=== PATIENT | female | born 1975 | race Caucasian/White ===

== ENCOUNTER 2016-05-31 14:23 | Emergency (ER) | payer BC, SELFPAY ==
[2016-05-31 15:09] LABS: HEMOGLOBIN 12.8 gm/dl (12.3-15.3); RED BLOOD COUNT 4.39 M/UL (4.00-5.10); WHITE BLOOD COUNT 8.4 K/UL (4.5-11.0)
[2016-05-31 15:32] LABS: BUN/CREATININE RATIO 14 (0-10)
== END 2016-05-31 21:00 | disposition home or self-care (01) ==
LOC: ER1 14:23
PROVIDERS: Emergency Medicine
DX: R00.2 Palpitations (principal)
CPT/HCPCS: 36415; 71010; 71020; 80053; 82550; 82553; 83874; 84443; 84484; 84703; 85025; 85379; 93005; 99285

== ENCOUNTER → 2016-06-14 | Outpatient (CLI) | payer BC, SELFPAY ==
[2016-06-14 08:01] LABS: HEMOGLOBIN 13.8 gm/dl (12.3-15.3); RED BLOOD COUNT 4.71 M/UL (4.00-5.10); WHITE BLOOD COUNT 7.7 K/UL (4.5-11.0)
[2016-06-14 08:25] LABS: BUN/CREATININE RATIO 18 (0-10)
== END ==
LOC: LAB 06:45
PROVIDERS: Psychiatry & Neurology Neurology
DX: G50.0 Trigeminal neuralgia (principal); E78.5 Hyperlipidemia, unspecified; I10 Essential (primary) hypertension; E55.9 Vitamin D deficiency, unspecified
CPT/HCPCS: 80053; 80061; 84439; 84443; 85025

== ENCOUNTER → 2016-07-04 | Outpatient (CLI) | payer BC, SELFPAY | LOC: RT 12:01 | DX: R00.2 Palpitations (principal); I10 Essential (primary) hypertension ==

== ENCOUNTER → 2016-07-22 | Outpatient (CLI) | payer BC, SELFPAY | LOC: HEART 5 09:30 → ECHO 10:00 | DX: R00.2 Palpitations (principal); I10 Essential (primary) hypertension; I35.0 Nonrheumatic aortic (valve) stenosis | CPT/HCPCS: ECHO; 93306 ==

== ENCOUNTER → 2020-02-27 | Outpatient (CLI) | payer BC | LOC: HEART 5 13:29 | DX: R00.0 Tachycardia, unspecified (principal) ==

== ENCOUNTER → 2020-08-22 | Outpatient (CLI) | payer BC ==
[~2020-08-22] MED LIST: LOMOTIL 2.5-0.1 EACH PO
[2020-08-22 08:25] LABS: HEMOGLOBIN 12.8 gm/dl (12.3-15.3); RED BLOOD COUNT 4.28 M/UL (4.00-5.10); WHITE BLOOD COUNT 7.1 K/UL (4.5-11.0)
[2020-08-22 08:50] LABS: BUN/CREATININE RATIO 10 (0-10)
== END ==
LOC: LAB 07:51
PROVIDERS: Nurse Practitioner Family
DX: I10 Essential (primary) hypertension (principal); E78.5 Hyperlipidemia, unspecified; E55.9 Vitamin D deficiency, unspecified
CPT/HCPCS: 36415; 80053; 80061; 81001; 84439; 84443; 85025

== ENCOUNTER → 2020-08-27 | Outpatient (CLI) | payer BC ==
[2020-08-27 08:50] LABS: BUN/CREATININE RATIO 17 (0-10)
== END ==
LOC: LAB 07:29
PROVIDERS: Nurse Practitioner Family
DX: E87.1 Hypo-osmolality and hyponatremia (principal)
CPT/HCPCS: 80048

== ENCOUNTER → 2020-10-19 | Outpatient (CLI) | payer BC | LOC: CT 08:54 | DX: G50.1 Atypical facial pain (principal); J32.9 Chronic sinusitis, unspecified | CPT/HCPCS: 70486 ==

== ENCOUNTER → 2020-10-28 | Outpatient (CLI) | payer BC ==
[2020-10-28 07:52] LABS: BUN/CREATININE RATIO 18 (0-10)
== END ==
LOC: LAB 07:15
PROVIDERS: Psychiatry & Neurology Neurology
DX: G50.1 Atypical facial pain (principal); E87.1 Hypo-osmolality and hyponatremia; J32.9 Chronic sinusitis, unspecified; G50.0 Trigeminal neuralgia
CPT/HCPCS: 80048

== ENCOUNTER 2020-11-12 08:36 | Emergency (ER) | payer BC ==
[2020-11-12] MEDS ORDERED: LOMOTIL 2.5-0.1 EACH PO (10:10)
== END 2020-11-12 10:28 | disposition home or self-care (01) ==
LOC: ER1 08:36
DX: K64.4 Residual hemorrhoidal skin tags (principal); K52.9 Noninfective gastroenteritis and colitis, unspecified; E78.5 Hyperlipidemia, unspecified
CPT/HCPCS: 99283

== ENCOUNTER → 2020-11-27 | Day surgery (SDC) | payer BC, OTHER ==
[~2020-11-27] MED LIST changes: +AMITRIPTYLINE H25 MG PO; +ASPIRIN81 MG PO; +ATORVASTATIN CA40 MG PO; +HYDROCODONE-IB1 EAC3 PO; +LIORESAL TAB 1010 MG PO; +LISINOPRIL20 MG PO; +METOPROLOL TART25 MG PO; +OXCARBAZEPINE300 MG PO; +OXCARBAZEPINE600 MG PO; +VITAMIN D21250 MCG PO; +ZYRTEC10 M3 PO
== END | disposition home or self-care (01) ==
LOC: OR 06:28
DX: Z12.11 Encounter for screening for malignant neoplasm of colon (principal); I10 Essential (primary) hypertension; E78.5 Hyperlipidemia, unspecified; Z88.8 Allergy status to other drugs, medicaments and biological substances; Z87.891 Personal history of nicotine dependence; Z79.82 Long term (current) use of aspirin; Z79.899 Other long term (current) drug therapy; Z20.822 Contact with and (suspected) exposure to COVID-19
CPT/HCPCS: 84703; J2704; J7030

== ENCOUNTER 2021-09-25 01:40 | Emergency (ER) | payer BC ==
[2021-09-25 03:54] LABS: HEMOGLOBIN 13.4 gm/dl (12.3-15.3); RED BLOOD COUNT 4.58 M/UL (4.00-5.10); WHITE BLOOD COUNT 3.4 K/UL (4.5-11.0)
[2021-09-25 04:29] LABS: BUN/CREATININE RATIO 13 (0-10)
== END 2021-09-25 05:16 | disposition home or self-care (01) ==
LOC: ER1 01:40
PROVIDERS: Emergency Medicine
DX: U07.1 COVID-19 (principal); G50.0 Trigeminal neuralgia; Z79.899 Other long term (current) drug therapy; Z88.8 Allergy status to other drugs, medicaments and biological substances
CPT/HCPCS: 71045; 80053; 82550; 82553; 84484; 85025; 93005; 99284